=== PATIENT | female | born 1960 | race Caucasian/White ===

== ENCOUNTER → 2017-08-05 | Outpatient (CLI) | payer OTHER ==
[~2017-08-05] MED LIST: AUGMENTIN 875-1 EACH PO; BENADRYL25 MG PO; DIPHENHIST50 MG PO; EXCEDRIN CAPLE1 EACH PO; PREDNISONE50 MG PO
== END ==
LOC: M.RAD 14:29
DX: M85.89 Other specified disorders of bone density and structure, multiple sites (principal); Z78.0 Asymptomatic menopausal state

== ENCOUNTER 2017-10-15 12:35 | Inpatient (IN) | payer OTHER ==
[~2017-10-15] VITALS: Ht 154.9 cm; Wt 52.6 kg
[~2017-10-15 12:35] MED LIST changes: -AUGMENTIN 875-1 EACH PO
[2017-10-15 13:30] VITALS: BP 119/75
[2017-10-15 15:11] LABS: ALBUMIN 3.4 g/dL (3.4-5.0); DIRECT BILIRUBIN 0.1 mg/dL (<0.1-0.3); TOTAL BILIRUBIN 0.5 mg/dL (<0.1-1.0); TOTAL PROTEIN 7.3 g/dL (6.4-8.2)
[2017-10-15 17:26] LABS: BE -3.5 mmol/L (-2 to +3); HCO3 20.6 mmol/L (22.0-26.0); PCO2 34.1 mmHg (35.0-45.0); PO2 75.4 mmHg (75.0-100.0); pH 7.398 (7.340-7.450)
[2017-10-15 18:38] LABS: APTT 29.6 Seconds (25.0-31.3); PROTIME 9.6 Seconds (9.20-11.50)
[2017-10-15 21:15] VITALS: BP 118/68
[2017-10-16 10:00] VITALS: BP 112/71
[2017-10-16] MEDS ORDERED: AUGMENTIN 875-1 EACH PO ×2 (13:39)
[2017-10-16 13:49] VITALS: BP 112/71
[2017-10-16 15:08] VITALS: BP 112/71
== END 2017-10-16 15:09 | disposition home or self-care (01) | DRG 392 ==
LOC: M.ORTHSURG 12:35
PROVIDERS: ADMIT Internal Medicine
DX: K57.32 Diverticulitis of large intestine without perforation or abscess without bleeding (principal); F17.210 Nicotine dependence, cigarettes, uncomplicated; N83.209 Unspecified ovarian cyst, unspecified side; Z90.13 Acquired absence of bilateral breasts and nipples; Z85.3 Personal history of malignant neoplasm of breast; Z88.6 Allergy status to analgesic agent; Z88.8 Allergy status to other drugs, medicaments and biological substances; Z79.2 Long term (current) use of antibiotics; Z79.899 Other long term (current) drug therapy; Z80.3 Family history of malignant neoplasm of breast; Z83.79 Family history of other diseases of the digestive system

== ENCOUNTER → 2017-10-15 | Outpatient (CLI) | payer OTHER ==
[2017-10-15 10:52] LABS: HEMATOCRIT 41.7 % (37.0-47.0); HEMOGLOBIN 13.8 gm/dL (12.0-15.0); MCH 31.4 pg (26.0-34.0); MPV 8.4 fl. (7.2-11.1); NUCLEATED RBCS 0 /100WBC; PLATELET COUNT* 259 thou/uL (150-400); RBC 4.39 mil/uL (4.20-5.00); RDW-CV 13.2 % (10.5-14.5); WBC 16.8 thou/uL (4.0-11.0)
[2017-10-15 11:01] LABS: ALBUMIN 3.4 g/dL (3.4-5.0); CALCIUM 9.3 mg/dL (8.5-10.1); CREATININE 0.7 mg/dL (0.6-1.3); TOTAL BILIRUBIN 0.5 mg/dL (<0.1-1.0); TOTAL PROTEIN 7.4 g/dL (6.4-8.2)
[2017-10-15 11:36] LABS: ABSOLUTE EOSINOPHILS 0.2 thou/uL (0.0-0.7); ABSOLUTE LYMPHOCYTES 1.8 thou/uL (0.8-5.3); ABSOLUTE MONOCYTES 0.5 thou/uL (0.0-1.2); ABSOLUTE NEUTROPHILS 14.3 thou/uL (1.6-8.1); ANISOCYTOSIS 1+; PLATELET ESTIMATE ADEQUATE; POIKILOCYTOSIS 1+
== END ==
LOC: M.LAB 10:30
PROVIDERS: Specialist
DX: K57.30 Diverticulosis of large intestine without perforation or abscess without bleeding (principal); N83.202 Unspecified ovarian cyst, left side; J98.11 Atelectasis; M47.816 Spondylosis without myelopathy or radiculopathy, lumbar region; R10.2 Pelvic and perineal pain; Z87.891 Personal history of nicotine dependence; Z88.5 Allergy status to narcotic agent

== ENCOUNTER → 2020-10-30 | Outpatient (CLI) | payer OTHER ==
[~2020-10-30] MED LIST changes: +AUGMENTIN 875-1 EACH PO
== END ==
LOC: M.NUC 07:02
PROVIDERS: ATTEND Internal Medicine Gastroenterology
DX: R10.9 Unspecified abdominal pain (principal); R68.89 Other general symptoms and signs; R11.0 Nausea

== ENCOUNTER → 2020-12-06 | Outpatient (CLI) | payer OTHER ==
[2020-12-06 10:30] LABS: ABSOLUTE BASOPHILS 0.1 thou/uL (0.0-0.2); ABSOLUTE EOSINOPHILS 0.7 thou/uL (0.0-0.7); ABSOLUTE LYMPHOCYTES 1.4 thou/uL (0.8-5.3); ABSOLUTE MONOCYTES 0.5 thou/uL (0.0-1.2); ABSOLUTE NEUTROPHILS 4.9 thou/uL (1.6-8.1); EOSINOPHILS 9.1 %; HEMATOCRIT 42.6 % (37.0-47.0); HEMOGLOBIN 14.3 gm/dL (12.0-15.0); LYMPHOCYTES 18.6 %; MCH 31.3 pg (26.0-34.0); MCHC 33.5 g/dL (28.0-37.0); MCV 93.3 fL (80.0-100.0); MONOCYTES 6.6 %; MPV 7.5 fl. (7.2-11.1); NUCLEATED RBCS 0 /100WBC; PLATELET COUNT* 329 thou/uL (150-400); POLYS 64.7 %; RBC 4.56 mil/uL (4.20-5.00); RDW-CV 13.4 % (10.5-14.5); WBC 7.6 thou/uL (4.0-11.0)
[2020-12-06 10:46] LABS: ALBUMIN 3.9 g/dL (3.4-5.0); CALCIUM 8.9 mg/dL (8.5-10.1); CREATININE 0.8 mg/dL (0.6-1.3); TOTAL BILIRUBIN 0.3 mg/dL (<0.1-1.0); TOTAL PROTEIN 7.4 g/dL (6.4-8.2)
[2020-12-06 11:37] LABS: ESR (SEDRATE) 7 mm/hr (0-30)
== END ==
LOC: M.LAB 11-27 11:22
PROVIDERS: ATTEND Internal Medicine Gastroenterology
DX: K57.30 Diverticulosis of large intestine without perforation or abscess without bleeding (principal); N83.292 Other ovarian cyst, left side; R63.4 Abnormal weight loss; Z90.13 Acquired absence of bilateral breasts and nipples

== ENCOUNTER 2021-01-10 06:23 | Observation (INO) | payer OTHER ==
[~2021-01-10] VITALS: Ht 154.9 cm; Wt 46.2 kg
[~2021-01-10 06:23] MED LIST changes: +ASPIRIN325 PO; +FISH OIL 1,0001 EAC9 PO; +PEPCID40 MG PO; +PREVACID30 MG PO; +VITAMIN D3250 MC2 PO; +ZINC50 MG PO
[2021-01-10 11:19] LABS: HEMATOCRIT 40.2 % (37.0-47.0); HEMOGLOBIN 13.4 gm/dL (12.0-15.0); MCH 31.5 pg (26.0-34.0); MCHC 33.3 g/dL (28.0-37.0); MCV 94.5 fL (80.0-100.0); MPV 7.7 fl. (7.2-11.1); RBC 4.26 mil/uL (4.20-5.00); RDW-CV 13.5 % (10.5-14.5); WBC 10.4 thou/uL (4.0-11.0)
[2021-01-10 11:28] LABS: CALCIUM 8.4 mg/dL (8.5-10.1); CREATININE 0.6 mg/dL (0.6-1.3); POTASSIUM 3.8 mmol/L (3.5-5.1)
--- NOTE | 2021-01-10 14:25 | EKG ---
[place] [address] ELECTROCARDIOGRAM REPORT Name: ADEOLA GOULD Room: [address] M.R.#: [id number] Admission: 01/10/21 Attend Phys: Pablo Olivares MD Discharge: Date of : 56 Date of Service: 01/10/21 1147 Report #: [id number] THIS REPORT FOR: //name// [facility] Test Date: 2021-01-10 Test Time: 11:47:17 Pat Name: ADEOLA GOULD Department: Room: [place] [address] Gender: F [employer]: GEOVANI : 1960 Requested By: Geoff Newman Order Number: [id number] MD: Carlton Cardoso Measurements Intervals [place] Rate: 62 P: 76 ND: 178 QRS: -60 QRSD: 96 T: 63 QT: 449 QTc: 456 Interpretive Statements Sinus rhythm Inferior infarct, old Lateral leads are also involved Baseline wander in lead(s) V5 No previous ECG available for comparison Electronically Signed On 01-10-2021 14:25:03 CDT by Carlton Cardoso [email or web address] <ELECTRONICALLY SIGNED> By: Carlton Cardoso MD, FACC 01/10/21 1425 1147 1147 Carlton Cardoso MD, [facility] /EPI
[2021-01-10 17:30] VITALS: BP 130/69
[2021-01-10 20:00] VITALS: BP 96/61
[2021-01-11] VITALS: BP 76/59
[2021-01-11 04:00] VITALS: BP 100/59
[2021-01-11 08:30] VITALS: BP 100/54
[2021-01-11 16:05] VITALS: BP 113/60
[2021-01-11 20:00] VITALS: BP 114/58
[2021-01-12] VITALS: BP 104/60
[2021-01-12 08:00] VITALS: BP 124/67
[2021-01-12 17:32] VITALS: BP 133/62
[2021-01-12 20:29] VITALS: BP 135/66
[2021-01-13] VITALS: BP 169/82
[2021-01-13 08:00] VITALS: BP 113/57
[2021-01-13 13:07] VITALS: BP 113/57
[2021-01-13 13:55] VITALS: BP 113/57
--- NOTE | 2021-01-19 12:38 | OP ---
[address] [address] OPERATIVE REPORT Name: ADEOLA GOULD Room: [address] Basilio Rodriguez#: [id number] Admission: 01/10/21 Attend Phys: Pablo Olivares MD Discharge: 01/13/21 Date of : 56 Report #: [id number] THIS REPORT FOR: cc: Brigida Her Linda J. DO Joseph, Sigi P. MD ~ cc: Brigida Her DO, Gregory Vardakis, DO DATE OF SURGERY: 01/10/2021 PREOPERATIVE DIAGNOSIS: Pyloric stenosis. POSTOPERATIVE DIAGNOSIS: Prepyloric stenosis/stricture. OPERATIVE PROCEDURE DONE: Pyloromyotomy. SURGEON: Pablo Olivares MD INDICATION FOR THE PROCEDURE: The patient is a 60-year-old female who presented with complaints of intermittent episodes of gastric outlet obstruction secondary to pyloric stenosis for which she underwent repeated episodes of dilation. The patient was advised a pyloroplasty. The patient showed understanding and agreed to proceed. PROCEDURE IN DETAIL: After explaining to the patient in detail and informed consent was obtained, the patient was identified in the preoperative holding area. The patient was transferred to the operating room and was placed in supine position. Sequential compression devices were placed for DVT prophylaxis. Preoperative antibiotics were given. After induction of anesthesia, the abdomen was prepped and draped in a sterile fashion. Through a left upper quadrant 1 cm incision and using Optiview technique, peritoneal cavity was entered and pneumoperitoneum was created. Thereafter, I placed another 12 mm trocar in the left mid abdomen. Another 5 mm trocar was placed in the right mid abdomen. Through a 1 cm incision in the epigastrium, a Karma retractor was introduced. The left lobe of the liver was retracted. On initial inspection, stomach appeared normal. The pylorus was identified. I then divided the pylorus in a transverse fashion using hook electrocautery. The pyloric muscles appeared thickened; however, I was attempting to enter into the biggest stomach cavity, I noted there was some tight area in the prepyloric region that appeared to be most likely an area of stricture. Therefore, I included this area proximally on the stomach side and another 1 cm on the duodenal side. The pylorus was then closed in a vertical fashion with 2-0 V-Loc sutures, couple of interrupted Ethibond sutures were also placed for reinforcement. The abdomen was then desufflated. Incisions were then closed with 4-0 Monocryl. The 12 mm port site incision was closed with 0 Vicryl for the fascia. Skin was closed with 4-0 Monocryl. Dermabond was applied. The [place] [address] OPERATIVE REPORT Name: ADEOLA GOULD Room: [address] Basilio Rodriguez#: [id number] Admission: 01/10/21 Attend Phys: Pablo Olivares MD Discharge: 01/13/21 Date of : 56 Report #: [id number] the procedure. The patient was awoken from anesthesia and was transferred to the recovery room in stable condition. Estimated blood loss was minimal. CONDITION: The patient is stable. FLUIDS GIVEN: Per anesthesia notes. SPECIMEN SENT: None. COMPLICATIONS: None. ANESTHESIA: General anesthesia. If the patient has recurrence of her symptoms, the patient will likely need an antrectomy and gastrojejunostomy. <ELECTRONICALLY SIGNED> By: Pablo Olivares MD 01/19/21 1238 [id number] [id number] Kieran Olivares MD /nt
== END 2021-01-13 13:20 | disposition home or self-care (01) ==
LOC: M.PRE 06:23 → M.TBA 10:16 → M.PRE 16:08 → M.3W 17:22
PROVIDERS: Anesthesiology; ADMIT Surgery; ATTEND Surgery
DX: K31.1 Adult hypertrophic pyloric stenosis (principal); Z20.822 Contact with and (suspected) exposure to COVID-19; Z85.3 Personal history of malignant neoplasm of breast; Z79.899 Other long term (current) drug therapy